=== PATIENT | male | born 1970 | race Caucasian/White ===

== ENCOUNTER → 2018-01-31 | Outpatient (CLI) | payer BC ==
[~2018-01-31] MED LIST: ACHD5005 PO; AMOX-355 PO; FLUT16SP22 NS
--- NOTE | 2018-01-31 14:32 | Diagnostic Imaging Report ---
INDICATION: Nodules of the right hand and fingers. TIME OF EXAM: 02:20 p.m. Three views of right hand demonstrate normal alignment. Metacarpals and phalanges appear unremarkable. No soft tissue mass is seen. There are no fractures or osseous erosions. Carpus is unremarkable. IMPRESSION: No abnormality is detected. Dictated by: Dictated on workstation # [id number]
--- NOTE | 2018-01-31 14:35 | Diagnostic Imaging Report ---
INDICATION: Nodules in the right hand and wrist. TIME OF EXAM: 02:23 p.m. Multiple views of the fingers of the right hand were obtained. Bony structures appear intact. Metacarpals and phalanges are unremarkable. Joint spaces are well-maintained. No fractures are seen. The soft tissues are unremarkable. IMPRESSION: No abnormality is detected. Dictated by: Dictated on workstation # [id number]
== END ==
LOC: RAD 13:46
PROVIDERS: ATTEND Nurse Practitioner Family
DX: R22.31 Localized swelling, mass and lump, right upper limb (principal)
CPT/HCPCS: 73130; 73140

== ENCOUNTER → 2018-02-20 | Outpatient (CLI) | payer BC ==
--- NOTE | 2018-02-20 14:33 | Diagnostic Imaging Report ---
PROCEDURE: MRI right joint upper extremity without contrast. TECHNIQUE: Multiplanar, multisequence [id number] MRI of the right wrist was accomplished. INDICATION: Right wrist and hand nodules. COMPARISON: Radiographs from 01/31/2018. FINDINGS: No acute fracture or dislocation is seen in the right wrist. Mild bone marrow edema and cyst-like changes are seen at the proximal hamate and lunate, likely degenerative. No joint effusion is seen. There is a small amount of fluid in the distal radioulnar joint. The scapholunate ligament appears intact. There is a perforation in the radial aspect of the triangular fibrocartilage, may represent a small tear. The extrinsic ligaments are unremarkable. The extensor tendons appear intact. The flexor tendons are intact. The medial and ulnar nerves are unremarkable. There is a serpiginous multilobulated fluid collection which extends from the lateral aspect of the radiocarpal joint, and in total measures approximately 1.2 x 2.0 cm. The largest component underlies the MRI marker and measures 8 x 5 mm in size. This lies between the first extensor compartment and the flexor carpi radialis. No muscular atrophy is seen. IMPRESSION: 1. Serpiginous multilobulated ganglion cyst corresponds with the nodule in question. 2. Defect or tear in the radial aspect of the triangular fibrocartilage with mild fluid in the distal radioulnar joint. 2. Subcortical cyst-like changes and minimal edema seen in the carpus, likely degenerative. Dictated by: Dictated on workstation # [id number]
--- NOTE | 2018-02-20 14:34 | Diagnostic Imaging Report ---
PROCEDURE: MRI right upper extremity without contrast. TECHNIQUE: Multiplanar, multisequence non contrast-enhanced MRI of the upper extremity was accomplished. INDICATION: Nodules in the hands. Patient feels nodules at the tip of the fingers below the fingernails. COMPARISON: Radiographs from 01/31/2018. FINDINGS: No acute fracture is seen in the right hand. Alignment is normal. There are areas of T1 hypointensity and T2 hyperintensity seen at the fourth metacarpal head, and the second metacarpal head. No joint effusion is seen. Degenerative changes are seen in the first metacarpophalangeal joint. No masses or fluid collections are seen. There is no muscular edema or atrophy. The imaged flexor and extensor tendons appear normal. IMPRESSION: 1. No masses or fluid collections are seen in the right hand. 2. Focal defects in the second and fourth metacarpal heads are thought to most likely represent subcortical cystlike changes from degenerative change. Erosion is in the differential as well, please correlate clinically to exclude inflammatory arthropathy. Dictated by: Dictated on workstation # [id number]
== END ==
LOC: RAD 09:29
PROVIDERS: ATTEND Nurse Practitioner Family
DX: M19.041 Primary osteoarthritis, right hand (principal); R22.31 Localized swelling, mass and lump, right upper limb
CPT/HCPCS: 73218; 73221

== ENCOUNTER → 2018-08-21 | Outpatient (CLI) | payer BC ==
--- NOTE | 2018-08-21 09:45 | Diagnostic Imaging Report ---
PROCEDURE: US Thyroid. TECHNIQUE: Multiple real-time grayscale images were obtained of the thyroid in various projections. INDICATION: Dysphagia. FINDINGS: Right lobe of the thyroid measures 4.4 x 1.8 x 1.7 cm and left lobe measures 4.0 x 1.7 x 1.8 cm. Isthmus is 7 mm in thickness. Both lobes of the thyroid demonstrate some mild generalized parenchymal heterogeneity but no discrete thyroid mass is detected. IMPRESSION: Thyroid heterogeneity. No discrete mass is detected. Dictated by: Dictated on workstation # [id number]
== END ==
LOC: RAD 08:58
PROVIDERS: ATTEND Nurse Practitioner Family
DX: R13.10 Dysphagia, unspecified (principal); R49.0 Dysphonia
CPT/HCPCS: 76536

== ENCOUNTER → 2019-02-18 | Outpatient (CLI) | payer BC ==
--- NOTE | 2019-02-18 16:14 | Diagnostic Imaging Report ---
INDICATION: Left-sided flank pain. COMPARISON: None FINDINGS: Single supine radiographic view of the abdomen was obtained and demonstrates nondistended loops of small bowel. There is no large collection of free peritoneal air. Mild air and stool are seen scattered throughout the colon. Several small extraosseous calcifications are noted projecting over the left hemipelvis. No unexpected radiopaque foreign bodies are seen. Bony structures show no gross acute abnormalities. IMPRESSION: 1. Nonobstructed small bowel gas pattern. 2. Probable left pelvic phleboliths. Distal ureteral calculi however cannot be entirely excluded. If there is persistent clinical concern for renal collecting system calculi, CT is recommended. Dictated by: Dictated on workstation # [id number]
[2019-02-18 16:17] LABS: BILIRUBIN,URINE NEGATIVE (NEGATIVE); CLARITY,URINE CLEAR; COLOR,URINE YELLOW; GLUCOSE, URINE (UA) NEGATIVE (NEGATIVE); KETONES,URINE NEGATIVE (NEGATIVE); LEUKOCYTE ESTERASE ,URINE NEGATIVE (NEGATIVE); NITRITE,URINE NEGATIVE (NEGATIVE); PROTEIN,URINE NEGATIVE (NEGATIVE)
[2019-02-18 16:24] LABS: BACTERIA,URINE TRACE /HPF; RBC,URINE 0-2 /HPF; WBC,URINE 0-2 /HPF
== END ==
LOC: RAD 15:42
PROVIDERS: ATTEND Nurse Practitioner Family
DX: R10.32 Left lower quadrant pain (principal); R10.31 Right lower quadrant pain
CPT/HCPCS: 74018; 81000

== ENCOUNTER → 2019-02-26 | Outpatient (CLI) | payer BC ==
--- NOTE | 2019-02-26 15:22 | Diagnostic Imaging Report ---
PROCEDURE: CT urinary tract, rule out kidney stone. TECHNIQUE: Multiple contiguous axial images were obtained through the abdomen and pelvis without the use of intravenous contrast. Auto Exposure Controls were utilized during the CT exam to meet ALARA standards for radiation dose reduction. INDICATION: Left flank pain. FINDINGS: There is mild linear atelectasis and/or scarring in the lung bases. Unenhanced images of the liver, gallbladder, pancreas and spleen are unremarkable. No adrenal gland abnormality is identified. There are several hypodensities in the left kidney measuring up to 1 cm in size. There is no evidence of renal calculus or hydronephrosis. There is no evidence of ureteric stone or dilatation or occasional calcified phlebolith seen bilaterally and pelvis. There is mural thickening involving the bladder with the bladder showing incomplete distention. There is inguinal herniation of fat on the left without evidence of bowel hernia at this time. There is no evidence of free fluid within the abdomen or pelvis. No localized inflammation or organized fluid collection is identified. IMPRESSION: No evidence of urinary tract calculus or obstruction; however, there is mural thickening of the bladder which may be due to cystitis. Clinical correlation and urinalysis may be of value. Otherwise, no acute abnormality is seen within the abdomen or pelvis. There is rather extensive degenerative disc disease at L4-L5 with endplate osteophytes resulting in at least moderate spinal stenosis. Dictated by: Dictated on workstation # [id number]
== END ==
LOC: RAD 14:19
PROVIDERS: ATTEND Nurse Practitioner Family
DX: N32.89 Other specified disorders of bladder (principal); M51.36 Other intervertebral disc degeneration, lumbar region; M48.061 Spinal stenosis, lumbar region without neurogenic claudication; M25.78 Osteophyte, vertebrae
CPT/HCPCS: 74176

== ENCOUNTER 2020-09-29 05:37 | Outpatient (RCR) | payer BC, OTHER ==
[~2020-09-29] VITALS: Ht 175.3 cm; Wt 105.4 kg
[~2020-09-29 05:37] MED LIST changes: +ARMO150T6 PO; +LISD40CA3 PO; +MV-M1TAB20 PO
[2020-09-30] MEDS ORDERED: PANT40TA2 PO (11:30)
== END 2020-09-29 10:15 | disposition home or self-care (01) ==
LOC: PREOP 05:37
PROVIDERS: ATTEND Surgery
DX: Z01.812 Encounter for preprocedural laboratory examination (principal); Z12.11 Encounter for screening for malignant neoplasm of colon; R13.10 Dysphagia, unspecified; Z20.822 Contact with and (suspected) exposure to COVID-19
CPT/HCPCS: 87635

== ENCOUNTER 2020-09-30 11:05 | Day surgery (SDC) | payer BC, OTHER ==
[~2020-09-30] VITALS: Ht 175.3 cm; Wt 105.4 kg
[2020-09-30] MEDS ORDERED: LACTATED RINGERS 1,000 ML IV STA (11:09)
[2020-09-30] MEDS ORDERED: LACTATED RINGERS 1,000 ML IV ONE (11:11)
[2020-09-30] MEDS ORDERED: LIDOCAINE JELLY 2% 6 ML SYRINGE MM PRN (11:15)
[2020-09-30] MEDS ORDERED: HURRICAINE EXT TUBE (BENZOCAINE) XX PRN (11:15)
[2020-09-30 11:22] VITALS: BP 124/81
--- NOTE | 2020-09-30 11:29 | Progress Note-Pre Operative ---
Pre-Operative Progress Note H&P Reviewed The H&P was reviewed, patient examined and no changes noted. Date Seen by Provider: Sep 30, 2020 Time Seen by Provider: 11:00 Date H&P Reviewed: Sep 30, 2020 Time H&P Reviewed: 11:00 Pre-Operative Diagnosis: GERD/dysphagia, screening o NEREIDA YANCEY MD Sep 30, 2020 11:29
[2020-09-30] MEDS ORDERED: morphine INJ 10 MG/ML 1ML (SYR OR VIAL) IVP PRN ×2 (11:30)
[2020-09-30] MEDS ORDERED: HYDROcodone/APAP 5 MG/325 MG (LORTAB) TAB PO PRN (11:30)
[2020-09-30] MEDS ORDERED: ONDANSETRON 4 MG/2 ML (SDV) Z0FRAN IVP PRN (11:30)
[2020-09-30] MEDS ORDERED: ACETAMINOPHEN 325 MG TABLET PO PRN (11:30)
[2020-09-30] MEDS ORDERED: PANT40TA2 PO (11:30)
--- NOTE | 2020-09-30 11:31 | Discharge Inst-Surgical ---
D/C Lap Instructions-KIDO New, Converted, or Re-Newed RX: RX on Chart Follow Up Activity as tolerated High Fiber Diet 25g or more per day Avoid Alcohol, Caffeine, Spicy [place] and Acid foods. Drink 64 fluid oz or more of fluids per day. Symptoms to Report: Fever over 101 degree F, Nausea/Vomiting If any problems/questions: Contact your physician or go to Emergency Room NEREIDA YANCEY MD Sep 30, 2020 11:31
[2020-09-30] MEDS ORDERED: PROPOFOL INJECTION 50 ML IV ONE (11:43)
[2020-09-30] MEDS ORDERED: MIDAZOLAM 2 MG/2 ML (VERSED) VIAL ONE (11:43)
[2020-09-30] MEDS ORDERED: proPOfol 200 MG/20 ML (DIPRIVAN) VIAL IV ONE (12:11)
[2020-09-30 12:30] VITALS: BP 111/63
[2020-09-30 12:35] VITALS: BP 106/63
[2020-09-30 12:40] VITALS: BP_SYST 113; BP_SYST 117; BP_DIAS 69; BP_DIAS 82
[2020-09-30 13:04] VITALS: BP 106/76
[2020-09-30 13:05] VITALS: BP 106/76
--- NOTE | 2020-09-30 13:26 | Anesthesia-General Post-Op ---
MAC Patient Condition Mental Status/LOC: Same as Preop Cardiovascular: Satisfactory Nausea/Vomiting: Absent Respiratory: Satisfactory Pain: Controlled Complications: Absent Post Op Complications Complications None Follow Up Care/Instructions Patient Instructions None needed. Anesthesiology Discharge Order Discharge Order Patient is doing well, no complaints, stable vital signs, no apparent adverse anesthesia problems. No complications reported per nursing. JOSE SCHULTZ CRNA Sep 30, 2020 13:25
--- NOTE | 2020-09-30 13:29 | Progress Note-Post Operative ---
Post-Operative Progess Note Surgeon (s)/Tennis Ball Coverer Hand (s) Surgeon NEREIDA YANCEY MD Tennis Ball Coverer Hand: none Pre-Operative Diagnosis GERD/dysphagia, screening colo Post-Operative Diagnosis reflux esophagitis(stage 2-3), distal esophageal stricture, small-moderate HH(2.5cm), moderate gastritis. mild chronic stage 2 ext and int hemorrhoids. Procedure & Operative Findings Date of Procedure 09/30/20 Procedure Performed/Findings EGD with bx and balloon dilatation. colonoscopy. Anesthesia Type mac Estimated Blood Loss Estimated blood loss (mL): minimal Specimens/Packing Specimens Removed ge jxn, antrum NEREIDA YANCEY MD Sep 30, 2020 13:29
--- NOTE | 2020-09-30 17:42 | OPERATIVE REPORT ---
DATE OF SERVICE: 09/30/2020 ATTENDING PRIMARY CARE PHYSICIAN: Lisa Hameed MD PREOPERATIVE DIAGNOSES: Gastroesophageal reflux disease, dysphagia, screening colonoscopy. POSTOPERATIVE DIAGNOSES: Reflux esophagitis between stage II and III, mild distal esophageal stricture, small to moderate size hiatal hernia approximately 2.5 cm in size, moderate gastritis and mild chronic stage II external and internal hemorrhoids. PROCEDURE: EGD with biopsy and balloon dilatation, colonoscopy. SURGEON: Nereida Yancey MD. ANESTHESIA: Monitored anesthesia care. ESTIMATED BLOOD LOSS: Minimal. FINDINGS: Reflux esophagitis between stage II and III, mild distal esophageal stricture, small to moderate size hiatal hernia approximately 2.5 cm in size, moderate gastritis and mild chronic stage II external and internal hemorrhoids. DISPOSITION: The patient tolerated the procedure well. INDICATIONS: The patient is a 50-year-old male in need of a screening colonoscopy; however, he has had symptomatic gastroesophageal reflux disease for years; however, in the past 6 months, this has progressively worsened or he will have dysphagia for specific types of foods. He does not report any episodes of hematemesis, no coffee ground emesis. He also does not report any major issues with diarrhea nor constipation as well as no red blood per rectum nor any dark tarry stools. He also does not report any family history of colon cancer. DESCRIPTION OF PROCEDURE: The patient was brought to the endoscopy suite, laid in left lateral decubitus position with head slightly elevated. After adequate IV pain and sedative medications and monitored anesthesia care, the mouthpiece was applied. The endoscope was placed in the mouth, visualizing the pharynx and hypopharyngeal region. Vocal cords, epiglottis and vallecula identified and appeared to be normal. The endoscope was then gently intubated into the esophageal opening and esophagus insufflated. The endoscope was then advanced to the first, second and third portions of esophagus at the level of the GE junction, a reflux esophagitis between stage II and III identified as well as a mild distal esophageal stricture. The GE junction was also intrathoracic consistent with a hiatal hernia. The endoscope was then advanced into the stomach and endoscope retroflexed, visualizing what appeared to be a small to moderate sized type 1 sliding hiatal hernia 2.5 to 3 cm in size. There was a moderate severity gastritis. No formal ulcerations, polyps, or any neoplasms. A biopsy was taken of the stomach antrum to rule out H. pylori with visualization of good hemostasis. The endoscope was then advanced through the pylorus and the first and second portion of the duodenum, which appeared normal. We then proceeded with balloon dilatation of the distal esophageal stricture and balloon was placed in the stomach and pulled back to the area of stricture. We then proceeded in a gradual stepwise fashion from 2, 4, then 6 atmospheres of pressure with moderate resistance and left this in place for 60 seconds. This equals 20 mm in luminal diameter. The balloon was left in place for 60 seconds and desufflated and removed with visualization of good hemostasis as well as no leaking ducts of [place]. The endoscope was then slowly withdrawn while taking a second look and suctioning of residual air with no additional findings. The patient tolerated the procedure well. We will recommend the necessary lifestyle and diet accommodation for his reflux esophagitis, hiatal hernia and stricture, which will include small and more frequent meals, avoidance of eating at night as well as head elevation while lying supine. He also needs to avoid caffeinated beverages, spicy, greasy and acidic foods as well as proceed with any form of regularly scheduled diet and exercise regimen for weight loss. We will also start him on Protonix 40 mg daily. We will also recommend a high fiber diet with a fiber supplement on a daily basis, which should equal or exceed 30 grams daily as well as significant amounts of water to promote soft stools on a daily basis. If he is asymptomatic, he does not need another colonoscopy for another 10 years. Job ID: [id number] DocumentID: [id number] Dictated Date: 09/30/2020 12:29:15 City Planner Date: 09/30/2020 17:41:40 Dictated By: NEREIDA YANCEY MD
== END 2020-09-30 13:10 | disposition home or self-care (01) ==
LOC: ENDO 11:05
PROVIDERS: ATTEND Surgery
DX: Z12.11 Encounter for screening for malignant neoplasm of colon (principal); K21.00 Gastro-esophageal reflux disease with esophagitis, without bleeding; K29.50 Unspecified chronic gastritis without bleeding; K22.8 Other specified diseases of esophagus; E66.9 Obesity, unspecified; E55.9 Vitamin D deficiency, unspecified; K22.2 Esophageal obstruction; K44.9 Diaphragmatic hernia without obstruction or gangrene; K64.4 Residual hemorrhoidal skin tags; K64.1 Second degree hemorrhoids; B96.81 Helicobacter pylori [H. pylori] as the cause of diseases classified elsewhere; G47.33 Obstructive sleep apnea (adult) (pediatric); Z99.89 Dependence on other enabling machines and devices; Z68.34 Body mass index [BMI] 34.0-34.9, adult; Z20.822 Contact with and (suspected) exposure to COVID-19; Z90.89 Acquired absence of other organs; Z79.899 Other long term (current) drug therapy; Z83.3 Family history of diabetes mellitus; Z80.1 Family history of malignant neoplasm of trachea, bronchus and lung